=== PATIENT | male | born 1975 | race Two or more races ===

== ENCOUNTER 2016-12-24 05:49 | Emergency (ER) | payer MEDICARE, MEDICAID ==
[~2016-12-24] VITALS: Ht 172.7 cm; Wt 99.8 kg
[2016-12-24] MEDS ORDERED: IV NORMAL SALINE 1000 ML BAG IV ONE ×2 (06:15→07:30)
[2016-12-24] MEDS ORDERED: ONDANSETRON 4 MG/2 ML VIAL IV ONE (06:15)
[2016-12-24] MEDS ORDERED: HYDROMORPHONE 1 MG/1 ML DISP.SYRIN IV ONE ×2 (06:15→09:00)
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
[2016-12-24] MEDS ORDERED: HYDROMORPHONE 2 MG/1 ML DISP.SYRIN ONE ×2 (06:32→09:24)
[2016-12-24] MEDS ORDERED: ONDANSETRON 4 MG/2 ML VIAL ONE (06:33)
[2016-12-24 06:39] LABS: CARBON DIOXIDE 23 mmol/L (21-32); CHLORIDE 105 mmol/L (98-107); GLUCOSE 231 mg/dL (74-106); POTASSIUM 3.3 mmol/L (3.5-5.1); UREA NITROGEN, BLOOD 7 mg/dL (7-18)
[2016-12-24 06:41] LABS: EOSINOPHILS # (AUTO) 0.1 K/uL (0.0-0.7); HEMATOCRIT 37.2 % (36.7-47.1); HEMOGLOBIN 13.3 g/dL (12.5-16.3); NEUTROPHILS # (AUTO) 3.4 K/uL (1.8-8.9); RED BLOOD CELL COUNT(AUTO) 4.12 MIL/uL (4.06-5.63)
[2016-12-24 06:43] LABS: BASOPHILS % (AUTO) 0.4 % (0.0-2.0); EOSINOPHILS % (AUTO) 1.4 % (0.0-7.0); LYMPHOCYTES # (AUTO) 2.2 K/uL (20.0-40.0); LYMPHOCYTES % (AUTO) 34.9 % (20.5-51.5); MEAN CORPUSCULAR HEMOGLOBIN 32.3 uug (23.8-33.4); MEAN CORPUSCULAR HGB CONC 36 g/dL (32.5-36.3); MEAN CORPUSCULAR VOLUME 90.4 fL (73.0-96.2); MONOCYTES # (AUTO) 0.6 K/uL (2.0-10.0); MONOCYTES % (AUTO) 9.3 % (0.0-11.0); PLATELET COUNT (AUTO) 222 K/uL (152-348); WHITE BLOOD COUNT (AUTO) 6.3 K/uL (3.6-10.2)
[2016-12-24 06:45] LABS: ALANINE AMINOTRANSFERASE 79 U/L (16-63); ALKALINE PHOSPHATASE 95 U/L (50-136); ASPARTATE AMINOTRANSFERASE 20 U/L (15-37); BILIRUBIN,DIRECT < 0.1 mg/dL (0.0-0.2); BILIRUBIN,TOTAL 0.2 mg/dL (0.2-1.0); LIPASE 322 U/L (73-393); TOTAL PROTEIN, SERUM 7.4 g/dL (6.4-8.2)
--- NOTE | 2016-12-24 06:45 | NUR ---
Pt returned from CT via gurney. Resting in position of comfort for self.
--- NOTE | 2016-12-24 07:01 | NUR ---
Pt conts to c/o severe pain and requesting more pain medication. Dr. Clemons notified and to bedside to see pt
[2016-12-24] MEDS ORDERED: ATEN25TA PO (07:03)
[2016-12-24] MEDS ORDERED: METF10002 PO (07:03)
--- NOTE | 2016-12-24 07:06 | NUR ---
Report to OMAIRA Gómez and endorsed care. I relinquish care of pt at this time
[2016-12-24] MEDS ORDERED: KETOROLAC TROMETHAMINE 30 MG INJ IVP ONE (07:30)
[2016-12-24] MEDS ORDERED: KETOROLAC TROMETHAMINE 30 MG INJ ONE (07:50)
--- NOTE | 2016-12-24 11:04 | NUR ---
pt was re-evaluated by dr cheema. pt was d/c to home. d/c instructions given to the pt.
[2016-12-24 11:06] VITALS: BP 146/88
== END 2016-12-24 11:08 | disposition home or self-care (01) ==
LOC: ER 05:52
DX: R10.11 Right upper quadrant pain (principal); F10.129 Alcohol abuse with intoxication, unspecified; I10 Essential (primary) hypertension; E11.9 Type 2 diabetes mellitus without complications; E78.5 Hyperlipidemia, unspecified; K76.0 Fatty (change of) liver, not elsewhere classified; R06.02 Shortness of breath; K70.0 Alcoholic fatty liver; F17.200 Nicotine dependence, unspecified, uncomplicated
CPT/HCPCS: 36415; 71010; 83605; 83690; 85025; A4663; J1170; J1885; J2405; J7030

== ENCOUNTER 2018-11-01 21:50 | Emergency (ER) | payer MEDICAID, MEDICARE ==
[~2018-11-01] VITALS: Ht 172.7 cm; Wt 102.1 kg
[~2018-11-01 21:50] MED LIST: ATEN25TA PO; METF-442 PO
[2018-11-01] MEDS: PANTOPRAZOLE SODIUM 40 MG VIAL IV ONE (22:13)
[2018-11-01] MEDS: IV NORMAL SALINE 1000 ML BAG IV ONE (22:14)
[2018-11-01] MEDS ORDERED: ONDANSETRON 4 MG/2 ML VIAL ONE (22:21)
[2018-11-01] MEDS ORDERED: PANTOPRAZOLE SODIUM 40 MG VIAL ONE (22:21)
[2018-11-01 22:24] LABS: BASOPHILS % (AUTO) 0.4 % (0.0-2.0); EOSINOPHILS % (AUTO) 0.4 % (0.0-7.0); HEMATOCRIT 40.4 % (36.7-47.1); HEMOGLOBIN 13.9 g/dL (12.5-16.3); LYMPHOCYTES # (AUTO) 1.9 K/uL (20.0-40.0); LYMPHOCYTES % (AUTO) 25.1 % (20.5-51.5); MEAN CORPUSCULAR HEMOGLOBIN 31.5 uug (23.8-33.4); MEAN CORPUSCULAR HGB CONC 35 g/dL (32.5-36.3); MEAN CORPUSCULAR VOLUME 91.4 fL (73.0-96.2); MONOCYTES # (AUTO) 0.7 K/uL (2.0-10.0); MONOCYTES % (AUTO) 9.6 % (0.0-11.0); NEUTROPHILS # (AUTO) 4.9 K/uL (1.8-8.9); NEUTROPHILS % (AUTO) 64.5 % (38.5-71.5); PLATELET COUNT (AUTO) 292 K/uL (152-348); RED BLOOD CELL COUNT(AUTO) 4.42 MIL/uL (4.06-5.63); WHITE BLOOD COUNT (AUTO) 7.6 K/uL (3.6-10.2)
[2018-11-01] MEDS: ONDANSETRON 4 MG/2 ML VIAL IV ONE (22:25)
[2018-11-01 22:30] LABS: POTASSIUM 3.6 mmol/L (3.5-5.1)
--- NOTE | 2018-11-01 22:30 | NUR ---
Patient A/O x3. Speking with clear speech. Patient tolerated PO fluid
[2018-11-01 22:37] LABS: BILIRUBIN,DIRECT 0.1 mg/dL (0.0-0.2); BILIRUBIN,TOTAL 0.3 mg/dL (0.2-1.0); TOTAL PROTEIN, SERUM 8.6 g/dL (6.4-8.2)
--- NOTE | 2018-11-01 22:45 | NUR ---
Patient able to ambulated with steady gait
[2018-11-01] MEDS: LIDOCAINE VISCUS 2% 15 ML UDC MM ONE (22:50)
[2018-11-01] MEDS: MAG HYDROX/AL HYDROX/SIMETH 30 ML LIQUID UDC PO ONE (22:50)
[2018-11-01] MEDS ORDERED: MAG HYDROX/AL HYDROX/SIMETH 30 ML LIQUID UDC ONE (22:55)
[2018-11-01] MEDS ORDERED: LIDOCAINE VISCUS 2% 15 ML UDC ONE (22:55)
--- NOTE | 2018-11-01 23:04 | NUR ---
IV removed. Catheter intact and site benign. Pressure and 4x4 gauze applied to site. No bleeding noted.
--- NOTE | 2018-11-01 23:07 | NUR ---
Patient discharged to home in stable conditon. Written and verbal after care instructions given. Patient verbalizes understanding of instructions. Walked out of ER with no distress noted
[2018-11-01 23:10] VITALS: BP 128/77
== END 2018-11-01 23:11 | disposition home or self-care (01) ==
LOC: ER 21:52
DX: K29.20 Alcoholic gastritis without bleeding (principal); I10 Essential (primary) hypertension; E11.9 Type 2 diabetes mellitus without complications; F17.200 Nicotine dependence, unspecified, uncomplicated; Z79.899 Other long term (current) drug therapy
CPT/HCPCS: 36415; 70030-TC; 71045; 83690; 85025; 85730; 93005; A4663; C9113; J2405; J7030

== ENCOUNTER 2023-05-18 19:45 | Emergency (ER) | payer MEDICARE, OTHER ==
[~2023-05-18] VITALS: Ht 172.7 cm; Wt 99.8 kg
[2023-05-18 20:35] VITALS: BP 125/85; TEMP 98.3; O2SAT 99
[2023-05-18] MEDS: ONDANSETRON 4 MG/2 ML VIAL IV ONE (20:37)
[2023-05-18] MEDS: IV NORMAL SALINE 1000 ML BAG IV ONE (20:37)
[2023-05-18] MEDS: FAMOTIDINE. 20 MG/2 ML VIAL IV ONE (20:37)
[2023-05-18] MEDS: KETOROLAC TROMETHAMINE 15 MG INJ IVP ONE (20:37)
== END 2023-05-18 20:38 | disposition left against medical advice (07) ==
LOC: ER 19:46
DX: R10.84 Generalized abdominal pain (principal); F10.129 Alcohol abuse with intoxication, unspecified; F29 Unspecified psychosis not due to a substance or known physiological condition; Z98.890 Other specified postprocedural states; Z60.2 Problems related to living alone; Y90.9 Presence of alcohol in blood, level not specified
CPT/HCPCS: 71045; A4606; A4663